=== PATIENT | female | born 1980 | race Two or more races ===

== ENCOUNTER 2018-01-02 08:41 | Outpatient (CLI) | payer OTHER ==
--- NOTE | 2018-01-03 16:08 | MRI Report ---
Procedure Date: 01/02/2018 Accession Number: [id number] / [id number] Procedure: MRI - Hip LT W/O CPT Code: FULL RESULT: EXAM: LEFT HIP MRI WITHOUT CONTRAST EXAM DATE: 01/02/2018 08:55 AM. CLINICAL HISTORY: Sciatic pain. Evaluating for piriformis syndrome. Lesion of sciatic nerve, unspecified lower limb. COMPARISON: LUMBAR SPINE 05/12/2015 10:35 AM. TECHNIQUE: Multiplanar, multisequence T1-weighted and fluid-sensitive, small [id number] sequences of the hip and large [id number] sequences of the pelvis without contrast. Other: None. FINDINGS: Bones and articular surfaces: No significant hip joint effusion. Hip joint spaces appear symmetric and within normal limits. Normal femoral head-neck offset. 5 mm subcortical cyst at the left femoral head-neck junction. Tiny symmetric defects at the base of the superolateral hip ambrose bilaterally. This may be normal developmental variation and is symmetric in appearance, less likely small superficial symmetric tearing . No significant labral tear visualized. No paralabral cyst formation. Sacroiliac joints appear symmetric and within normal limits. Pubic symphysis within normal limits. Musculotendinous structures: No evidence of significant muscle tear, tendinosis or bursitis. No muscle edema, atrophy or fatty replacement. Sciatic nerves: Symmetric in appearance demonstrating normal course, signal and morphology. No evidence of mass, mass effect or inflammatory process along the course of the sciatic nerve. Miscellaneous: Small amount of free fluid within the pelvis. Posterior subserosal uterine fibroid in the deep posterior left pelvis measures 3.0 x 3.0 x 3.7 cm. Intrauterine device is noted. IMPRESSION: 1. MRI appearance of the left hip within normal limits. 2. No evidence of mass, mass effect or inflammatory process along the course of the sciatic nerves. 3. Posterior subserosal uterine fibroid measuring up to 3.7 cm in diameter. [facility]IA MUSCULOSKELETAL RADIOLOGY SECTION
== END 2018-01-02 08:42 | disposition home or self-care (01) ==
LOC: DI 08:41
PROVIDERS: ATTEND Physician Assistant
DX: G57.02 Lesion of sciatic nerve, left lower limb (principal); D25.2 Subserosal leiomyoma of uterus

== ENCOUNTER 2021-02-28 13:55 | Outpatient (CLI) | payer OTHER ==
--- NOTE | 2021-03-01 09:17 | MRI Report ---
PROCEDURE: Shoulder RT W/O INDICATIONS: SHOULDER PAIN TECHNIQUE: Noncontrast oblique coronal T2 fast spin echo with fat saturation, oblique sagittal T1 spin echo and T2 fast spin echo with fat saturation, axial T1 spin echo and T2 fast spin echo with fat saturation t hrough the shoulder. COMPARISON: None. FINDINGS: Rotator cuff: Tendinopathy at the junction of supraspinatus and infraspinatus tendons where there is low-grade burs al surface fraying. Teres minor and subscapularis tendons appear intact. No atrophy of the rotator cu ff muscles. Bones and bursae: No bone marrow contusions or fractures. No acromioclavicular joint degeneration. The acromion demonstrates conventional anatomy, without an os acromiale. Trace subacromial/subdeltoid bursal fluid is present. Capsule and soft tissues: Labrum: No intrasubstance fluid signal intensity. No secondary changes in the glenoid to suggest labr al tear. Ligaments/capsule: The superior and inferior glenohumeral ligaments appear intact. Long head biceps tendon: Long head biceps tendon appears intact. Rotator interval: Normal signal intensity. Coracohumeral ligament: Intact. IMPRESSION: Tendinopathy and low-grade bursal surface fraying of the rotator cuff as above. Trace subacromial subdeltoid bursitis Reviewed by: Eliot Hemphill MD on 03/01/2021 9:16 AM PDT Approved by: Eliot Hemphill MD on 03/01/2021 9:16 AM PDT Station ID: [id number]
== END 2021-02-28 13:56 | disposition home or self-care (01) ==
LOC: DI 13:55
PROVIDERS: ATTEND Physician Assistant
DX: M75.51 Bursitis of right shoulder (principal)

== ENCOUNTER 2022-10-10 07:57 | Outpatient (CLI) | payer OTHER ==
[2022-10-10 11:41] LABS: BASOPHILS # (AUTO) 0.1 10^3/uL (0.0-0.1); BASOPHILS % (AUTO) 0.8 %; EOSINOPHILS % (AUTO) 0.7 %; HCT - HEMATOCRIT 43.2 % (37.0-47.0); HGB - HEMOGLOBIN 13.7 g/dL (12.0-16.0); LYMPHOCYTES # (AUTO) 2.1 10^3/uL (1.5-3.5); MEAN CORPUSCULAR HEMOGLOBIN 28.1 pg (27.0-31.0); MEAN CORPUSCULAR HGB CONC 31.7 g/dL (32.0-36.0); MEAN CORPUSCULAR VOLUME 88.7 fL (81.0-99.0); MEAN PLATELET VOLUME 9.8 fL (7.9-10.8); MONOCYTES # (AUTO) 0.6 10^3/uL (0.0-1.0); MONOCYTES % (AUTO) 9.5 %; NEUTROPHILS # (AUTO) 3.2 10^3/uL (1.5-6.6); NEUTROPHILS % (AUTO) 53.8 %; PLT - PLATELET COUNT 283 10^3/uL (130-450); RED BLOOD COUNT 4.87 10^6/uL (4.20-5.40); RED CELL DISTRIBUTION WIDTH 13.7 % (12.0-15.0)
[2022-10-10 12:12] LABS: ALBUMIN 4.3 g/dL (3.2-5.5); ALBUMIN/GLOBULIN RATIO 1.3 (1.0-2.2); BILIRUBIN,TOTAL 0.9 mg/dL (0.2-1.0); CREATININE 0.6 mg/dL (0.4-1.0); POTASSIUM 3.4 mmol/L (3.5-5.0); TOTAL PROTEIN 7.6 g/dL (6.7-8.2)
== END 2022-10-10 07:58 | disposition home or self-care (01) ==
LOC: LAB.N 07:57
PROVIDERS: ATTEND Physician Assistant
DX: Z00.00 Encounter for general adult medical examination without abnormal findings (principal)
CPT/HCPCS: 36415; 80053; 85025

== ENCOUNTER 2023-02-28 15:30 | Outpatient (CLI) | payer OTHER ==
--- NOTE | 2023-03-02 08:23 | Mammography Report ---
BILATERAL DIGITAL SCREENING MAMMOGRAM 3D/2D: 02/28/2023 CLINICAL: Baseline exam. Routine screening. No prior exams were available for comparison. There are scattered areas of fibroglandular density in both breasts (category b / 25%-50% glandular t issue). There is a focal asymmetry in the right breast at 1 o'clock anterior depth. No other significant masses, calcifications, or other findings are seen in either breast. IMPRESSION: INCOMPLETE: NEEDS ADDITIONAL IMAGING EVALUATION The focal asymmetry in the right breast is indeterminate. Additional views with possible ultrasound are recommended. Based on the Tyrer Cuzick model (a risk assessment model) the patients lifetime risk is 7.1% and her 10 year risk is 1.2%. According to the ACR, ACS, and NCCN guidelines, an annual breast MRI exam darron g with mammogram is recommended if the patients lifetime risk is 20% or greater. This exam was interpreted at Station ID: [id number]. NOTE: For mammograms, a report in lay terms will be sent to the patient. Approximately 15% of breast malignancies will not be visualized mammographically. In the management of a palpable breast mass, a negative mammogram must not discourage biopsy of a clinically suspicious lesion. Electronically Signed By: Muna delaney/van:03/01/2023 17:20:24 ACR BI-RADS Category 0: Incomplete 3340F PARENCHYMAL PATTERN: (A) - The breast(s) demonstrate(s) scattered fibroglandular densities. BI-RADS CATEGORY: (0) - 0 Mammo and [place] [id number] Immediate follow-up LATERALITY: (B)
== END 2023-02-28 15:31 | disposition home or self-care (01) ==
LOC: DI.N 15:30
DX: Z12.31 Encounter for screening mammogram for malignant neoplasm of breast (principal); R92.8 Other abnormal and inconclusive findings on diagnostic imaging of breast

== ENCOUNTER 2023-03-08 08:12 | Outpatient (CLI) | payer OTHER ==
--- NOTE | 2023-03-08 10:08 | Mammography Report ---
UNILATERAL RIGHT DIGITAL DIAGNOSTIC MAMMOGRAM 3D/2D: 03/08/2023 CLINICAL: Patient returns today to evaluate a focal asymmetry in the right breast. Comparison is made to exam dated: 02/28/2023 mammogram - [facility]. There are scattered areas of fibroglandular density in the right breast (category b / 25%-50% glandul ar tissue). The benign focal asymmetry in the right breast central to the nipple anterior depth is no longer seen . This is not seen in additional views. No other significant masses or calcifications are seen in the breast. IMPRESSION: BENIGN There is no mammographic evidence of malignancy. A 1 year screening mammogram is recommended. Based on the Tyrer Cuzick model (a risk assessment model) the patients lifetime risk is 7.1% and her 10 year risk is 1.2%. According to the ACR, ACS, and NCCN guidelines, an annual breast MRI exam darron g with mammogram is recommended if the patients lifetime risk is 20% or greater. This exam was interpreted at Station ID: [id number]. NOTE: For mammograms, a report in lay terms will be sent to the patient. Approximately 15% of breast malignancies will not be visualized mammographically. In the management of a palpable breast mass, a negative mammogram must not discourage biopsy of a clinically suspicious lesion. Electronically Signed By: Joby jain/van:03/08/2023 09:02:40 ACR BI-RADS Category 2: Benign Finding(s) 3342F PARENCHYMAL PATTERN: (A) - The breast(s) demonstrate(s) scattered fibroglandular densities. BI-RADS CATEGORY: (2) - 2 Mammogram [id number] 1 year screening LATERALITY: (B)
== END 2023-03-08 08:13 | disposition home or self-care (01) ==
LOC: DI 08:12
PROVIDERS: ATTEND Physician Assistant
DX: R92.8 Other abnormal and inconclusive findings on diagnostic imaging of breast (principal); R92.321 Mammographic fibroglandular density, right breast